=== PATIENT | female | born 1980 | race Caucasian/White ===

== ENCOUNTER 2021-06-18 15:20 | Outpatient (CLI) | payer OTHER ==
[2021-06-19 00:30] LABS: BACTERIAL VAGINOSIS DNA NEGATIVE (NEGATIVE); CANDIDA GLABRATA DNA NEGATIVE (NEGATIVE); CANDIDA GROUP DNA NEGATIVE (NEGATIVE); CANDIDA KRUSEI DNA NEGATIVE (NEGATIVE); TRICHOMONAS VAGINALIS DNA NEGATIVE (NEGATIVE)
== END 2021-06-18 23:59 | disposition home or self-care (01) ==
LOC: LAB.N 15:20
PROVIDERS: ATTEND Nurse Practitioner
DX: N89.8 Other specified noninflammatory disorders of vagina (principal)
CPT/HCPCS: 87661; 87801

== ENCOUNTER 2022-11-25 17:50 | Emergency (ER) | payer OTHER ==
[2022-11-25] MEDS ORDERED: KETOROLAC 15 MG/ML VIAL IVP STA (18:12)
--- NOTE | 2022-11-25 18:12 | ED Physician Documentation ---
PD HPI ABD PAIN - Stated complaint Stated Complaint: ABD PX - Chief complaint Chief Complaint: Abd Pain - History obtained from History obtained from: Patient - Additional information Additional information: 42-year-old woman with history of remote cholecystectomy and tubal ligation presents with progressive central abdominal pain that has been going on since about 6 AM yesterday, 36 hours. It is associated with diarrhea, no hematochezia. Mild nausea. No sick contacts. No fevers. Pain feels like ripping and crawling. Review of Systems Constitutional: denies: Fever, Chills Cardiac: denies: Chest pain / pressure, Palpitations Respiratory: denies: Dyspnea, Cough PD PAST MEDICAL HISTORY - Present Medications Home Medications: Ambulatory Orders Medication Instructions Recorded Confirmed Ciprofloxacin HCl [Cipro] 500 mg PO BID #6 tablet 11/25/22 Pantoprazole [Protonix] 40 mg PO DAILY 11/25/22 11/25/22 metroNIDAZOLE [Flagyl] 500 mg PO TID 7 Days #9 tablet 11/25/22 - Allergies Allergies/Adverse Reactions: Allergies Allergy/AdvReac Type Severity Reaction Status Date / Time No Known Drug Allergies Allergy Verified 11/25/22 17:56 PD ED PE NORMAL - Vitals Vital signs reviewed: Yes - General General: Alert and oriented X 3, Other (She appears uncomfortable) - Neck Neck: Supple, no meningeal sign, No bony TTP - Cardiac Cardiac: RRR, No murmur - Respiratory Respiratory: No respiratory distress, Clear bilaterally - Abdomen Abdomen: Normal bowel sounds, Soft, Other (Quite tender in the periumbilical a daryl without surgical signs) - Back Back: No CVA TTP, No spinal TTP - Derm Derm: Normal color, Warm and dry - Extremities Extremities: No edema, No calf tenderness / cord - Neuro Neuro: Alert and oriented X 3, Normal speech Results - Vitals Vitals: Vital Signs - 24 hr 11/25/22 17:52 Temperature 36.8 C Heart Rate 80 Respiratory 16 Rate Blood Pressure 126/69 O2 Saturation 98 Oxygen O2 Source Room air - Labs Labs: Laboratory Tests 11/25/22 11/25/22 18:21 18:21 WBC 7.3 RBC 4.64 Hgb 15.5 Hct 44.0 MCV 94.8 MCH 33.4 H MCHC 35.2 RDW 10.9 L Plt Count 303 MPV 9.5 Neut # (Auto) 5.8 Lymph # (Auto) 1.1 L [place] # (Auto) 0.4 Eos # (Auto) 0.0 Baso # (Auto) 0.0 Absolute Nucleated RBC 0.00 Nucleated RBC % 0.0 Sodium 136 Potassium 3.6 Chloride 101 Carbon Dioxide 24 Anion Gap 11.0 BUN 10 Creatinine 0.8 Estimated GFR (MDRD) 79 L Glucose 87 Calcium 9.6 Total Bilirubin 1.7 H AST 23 ALT 22 Alkaline Phosphatase 89 Total Protein 8.2 Albumin 4.6 Globulin 3.6 Albumin/Globulin Ratio 1.3 Lipase 32 - Rads (name of study) CT of the abdomen pelvis is normal Radiology: Final report received, EMP read indepedently PD Medical Decision Making - ED course Complexity details: reviewed results (Urinalysis in the clinic was done and results sent with her, negative UA and negative test.) ED course: 42-year-old woman presents with acute abdominal pain. With the usual differential diagnoses including but not limited to hernia, appendicitis, vascular disease, other surgical emergency. Work-up here was negative and she w as feeling better after Toradol. Given the symptom of diarrhea is very well possible to be bacterial colitis. We discussed the pros and cons of antibiotics for that and she would like a as needed prescription if not better. Given close return precautions. Departure - Departure Disposition: 01 Home, Self Care Clinical Impression: Abdominal pain Qualifiers: Abdominal location: periumbilical Qualified Code(s): R10.33 - Periumbilical pain Diarrhea Qualifiers: Diarrhea type: presumed infectious Qualified Code(s): R19.7 - Diarrhea, unspecified Condition: Good Record reviewed to determine appropriate education?: Yes Instructions: ED Abdominal Pain Female Non-Specific Abdominal Pain Prescriptions: Ciprofloxacin HCl [Cipro] 500 mg PO BID #6 tablet metroNIDAZOLE [Flagyl] 500 mg PO TID 7 Days #9 tablet Comments: We discussed the side effects of the antibiotics and you can start them tomorrow if you like or delay if you are getting better. Return for new or worsening symptoms or if not better by Wednesday morning.
[2022-11-25 18:36] LABS: BASOPHILS % (AUTO) 0.1 %; EOSINOPHILS % (AUTO) 0.4 %; HGB - HEMOGLOBIN 15.5 g/dL (12.0-16.0); LYMPHOCYTES # (AUTO) 1.1 10^3/uL (1.5-3.5); LYMPHOCYTES % (AUTO) 15.3 %; MEAN CORPUSCULAR HEMOGLOBIN 33.4 pg (27.0-31.0); MEAN CORPUSCULAR HGB CONC 35.2 g/dL (32.0-36.0); MEAN CORPUSCULAR VOLUME 94.8 fL (81.0-99.0); MEAN PLATELET VOLUME 9.5 fL (7.9-10.8); MONOCYTES # (AUTO) 0.4 10^3/uL (0.0-1.0); MONOCYTES % (AUTO) 5.1 %; NEUTROPHILS # (AUTO) 5.8 10^3/uL (1.5-6.6); NEUTROPHILS % (AUTO) 78.8 %; PLT - PLATELET COUNT 303 10^3/uL (130-450); RED BLOOD COUNT 4.64 10^6/uL (4.20-5.40); RED CELL DISTRIBUTION WIDTH 10.9 % (12.0-15.0); WHITE BLOOD COUNT 7.3 x10^3/uL (4.8-10.8)
[2022-11-25 18:39] LABS: ALBUMIN 4.6 g/dL (3.2-5.5); ALBUMIN/GLOBULIN RATIO 1.3 (1.0-2.2); BILIRUBIN,TOTAL 1.7 mg/dL (0.2-1.0); CALCIUM 9.6 mg/dL (8.5-10.3); CREATININE 0.8 mg/dL (0.4-1.0); POTASSIUM 3.6 mmol/L (3.5-5.0); TOTAL PROTEIN 8.2 g/dL (6.7-8.2)
[2022-11-25] MEDS ORDERED: iohexoL-300 100 ML VIAL ONE (18:54)
--- OUTSIDE RECORDS SUMMARY | 2022-11-25 19:12 | EXTERNAL MEDICAL SUMMARY RPT | Continuity of Care Document ---
:1980 Author Organization [facility] Address [address] [place] [address] Phone Care Team Providers Name Role Phone Unavailable Unavailable Unavailable Go Ramirez Md Unavailable Unavailable Allergies No information. Encounters No information. Functional Status No information. Immunizations No information. Medications No information. Problems date description facility 2022-11-25 00:00 Abdominal pain All 2022-11-25 00:00 Abdominal pain, unspecified site All 2022-11-25 00:00 Unspecified abdominal pain All Procedures date description facility 2022-11-25 00:00 Visit Code Hold All Results/Labs test date author facility value unit interpret ation Result panel 1 (unknown) (no date) (unknown) All (no value) (units unknown ) (unknown) Result panel 2 (unknown) (no date) (unknown) All (no value) (units unknown ) (unknown) Result panel 3 (unknown) (no date) (unknown) All (no value) (units unknown ) (unknown) Result panel 4 (unknown) (no date) (unknown) All (no value) (units unknown ) (unknown) Result panel 5 (unknown) (no date) (unknown) All (no value) (units unknown ) (unknown) Result panel 6 (unknown) (no date) (unknown) All (no value) (units unknown ) (unknown) Result panel 7 (unknown) (no date) (unknown) All (no value) (units unknown ) (unknown) Result panel 8 (unknown) (no date) (unknown) All (no value) (units unknown ) (unknown) Result panel 9 (unknown) (no date) (unknown) All (no value) (units unknown ) (unknown) Result panel 10 (unknown) (no date) (unknown) All (no value) (units unknown ) (unknown) Result panel 11 (unknown) (no date) (unknown) All (no value) (units unknown ) (unknown) Result panel 12 (unknown) (no date) (unknown) All (no value) (units unknown ) (unknown) Result panel 13 (unknown) (no date) (unknown) All (no value) (units unknown ) (unknown) Social History date description facility 2022-11-25 00:00 Unknown if ever smoked All Vital Signs date measurement value units 2022-11-25 00:00 BMI 27.56 kg/m2 2022-11-25 00:00 BP_diastolic 88 mmHg 2022-11-25 00:00 BP_systolic 122 mmHg 2022-11-25 00:00 heart_rate 92 /min 2022-11-25 00:00 height_metric 162.56 cm 2022-11-25 00:00 height_standard 64 in 2022-11-25 00:00 respiration_rate 18 /min 2022-11-25 00:00 temperature_metric 36.67 C 2022-11-25 00:00 temperature_standard 98 F 2022-11-25 00:00 weight_metric 72.57 kg 2022-11-25 00:00 weight_standard 160 lb
--- NOTE | 2022-11-25 19:36 | CT Report ---
PROCEDURE: ABDOMEN/PELVIS W INDICATIONS: IV only, low/central abd pain CONTRAST: 100mL Omni 300 TECHNIQUE: After the administration of intravenous contrast, 5 mm thick sections acquired from the diaphragms to the symphysis. 5 mm thick coronal and sagittal reformats were acquired. For radiation dose reducti on, the following was used: automated exposure control, adjustment of mA and/or kV according to santos ent size. COMPARISON: None. FINDINGS: Image quality: Excellent. ABDOMEN: Lung bases: Lung bases are clear. Heart size is normal. Solid organs: Liver and spleen are normal in size and enhancement. Gallbladder is surgically absent Biliary system is non dilated. Pancreas enhances normally. No adrenal nodules. Kidneys demonstra te normal size and enhancement, without hydronephrosis. Peritoneum and bowel: Bowel loops demonstrate normal wall thickness and caliber. No free fluid or a ir. Normal appendix. Nodes and vessels: No retroperitoneal or mesenteric adenopathy by size criteria. Aorta and inferior vena cava are normal in size. Miscellaneous: No ventral hernias. PELVIS: Genitourinary: Bladder wall thickness is normal. Miscellaneous: No inguinal hernias or adenopathy. Bones: No suspicious bony lesions. No vertebral body compression fractures. IMPRESSION: 1. No acute process. 2. Normal appendix. Reviewed by: Lukas Olivera MD on 11/25/2022 7:35 PM PST Approved by: Lukas Olivera MD on 11/25/2022 7:35 PM [facility] Station ID: [id number]
[2022-11-25] MEDS ORDERED: HYDROcod/ACET 5/325 Prepack 4 PO STA (19:50)
[2022-11-25] MEDS ORDERED: iohexoL-300 100 ML VIAL IVP ONE (19:51)
[2022-11-25 20:06] VITALS: BP 108/81
== END 2022-11-25 20:07 | disposition home or self-care (01) ==
LOC: ED 17:50
DX: R10.33 Periumbilical pain (principal); R19.7 Diarrhea, unspecified
CPT/HCPCS: 36415; 74177; 80053; 83690; 85025; 96374; 99283; 99284; Q9967